=== PATIENT | female | born 1985 | race Caucasian/White ===

== ENCOUNTER 2020-03-20 11:09 | Outpatient (REF) | payer BC, SELFPAY ==
[2020-03-20 11:32] LABS: COVID-19 Test Positive (Negative)
== END 2020-03-20 11:10 | disposition home or self-care (01) ==
LOC: HO.LAB 11:09
PROVIDERS: Visit Provider Internal Medicine
DX: Z20.828 Contact with and (suspected) exposure to other viral communicable diseases (principal)
CPT/HCPCS: 36415; 87635; C9803